=== PATIENT | female | born 1995 | race Caucasian/White ===

== ENCOUNTER 2018-06-27 16:43 | Emergency (ER) | payer BC, OTHER ==
[~2018-06-27] VITALS: Ht 160 cm; Wt 72.6 kg
[2018-06-27] MEDS ORDERED: TYLENOL EXTRA500 MG PO (16:54)
[2018-06-27] MEDS ORDERED: IBUPROFEN 800800 M1 PO (16:59)
[2018-06-27] MEDS ORDERED: AMOXICILLIN 50500 MG PO (16:59)
[2018-06-27 17:13] VITALS: BP 114/70
== END 2018-06-27 17:14 | disposition home or self-care (01) ==
LOC: ER 16:43
DX: K01.1 Impacted teeth (principal); R68.84 Jaw pain; F17.210 Nicotine dependence, cigarettes, uncomplicated